=== PATIENT | female | born 1960 | race Caucasian/White ===

== ENCOUNTER 2016-10-10 04:49 | Emergency (ER) | payer OTHER ==
[~2016-10-10] VITALS: Ht 167.6 cm; Wt 108.0 kg
[2016-10-10 04:59] VITALS: BP 160/105; PULSE 86; RESP 16; TEMP 98.8; O2SAT 97
[2016-10-10] MEDS ORDERED: SODIUM CHLOR 0.9% 1000 ML INJ 1,000 ML IV ONE (05:17)
[2016-10-10] MEDS ORDERED: ONDANSETRON HCL 4 MG/2 ML VIAL IVP ONE (05:30)
[2016-10-10] MEDS ORDERED: SODIUM CHLORIDE 0.9% FLUSH 5 ML FLUSH IVF PRN (05:30)
[2016-10-10] MEDS ORDERED: MORPHINE SULFATE 4 MG/ML INJ IV PUSH ONE (05:30)
[2016-10-10] MEDS ORDERED: PANTOPRAZOLE SODIUM 40 MG VIAL IVP ONE (05:30)
[2016-10-10 05:51] LABS: BLOOD, URINE NEG (NEG); GLUCOSE,URINE NEG (NEG); KETONE, URINE NEG (NEG); NITRITE,URINE NEG (NEG); PH, URINE 6.5 (5.0-8.5)
[2016-10-10 05:55] LABS: URINE COLOR YELLOW (YELLW/STRAW)
[2016-10-10 05:57] LABS: COMMENT (UR) CULT NOT INDICATED; CULTURE IF INDICATED CULT NOT INDICATED; SQUAMOUS EPITHELIAL CELL URINE 0-5 /hpf (0-5)
[2016-10-10 06:29] VITALS: BP 146/95; PULSE 71; RESP 18; O2SAT 96
[2016-10-10] MEDS ORDERED: MULTTAB67 PO ×2 (06:37)
[2016-10-10] MEDS ORDERED: ZOLO100T PO (06:37)
[2016-10-10] MEDS ORDERED: GLAT1INJ SQ (06:37)
[2016-10-10] MEDS ORDERED: ANTIVIRAL PO (06:39)
[2016-10-10 06:41] VITALS: RESP 18
[2016-10-10 06:52] LABS: AUTOMATED NEUTROPHIL # 2.9 TH/MM3 (1.8-7.7); BASOPHIL # 0.1 TH/MM3 (0-0.2); BASOPHIL % 0.9 % (0.0-2.0); EOSINOPHIL # 0.3 TH/MM3 (0-0.4); HEMO FLAGS DIFF FINAL; LYMPH % 30.2 % (9.0-44.0); LYMPHOCYTE # 1.7 TH/MM3 (1.0-4.8); MEAN CORPUSCULAR HEMOGLOBIN 28.3 PG (27.0-34.0); MEAN CORPUSCULAR HGB CONC 33.7 % (32.0-36.0); MONO % 10.2 % (0.0-8.0); NEUT % 53.7 % (16.0-70.0); PLATELET COUNT 311 TH/MM3 (150-450); RED BLOOD COUNT 4.76 MIL/MM3 (4.00-5.30); RED CELL DISTRIBUTION WIDTH 13.6 % (11.6-17.2); WHITE BLOOD COUNT 5.6 TH/MM3 (4.0-11.0)
[2016-10-10 07:04] LABS: CHLORIDE 107 MEQ/L (98-107); SODIUM (NA) 142 MEQ/L (136-145)
[2016-10-10 07:08] LABS: ANION GAP 8 MEQ/L (5-15); BICARBONATE 27.3 MEQ/L (21.0-32.0); BLOOD UREA NITROGEN 10 MG/DL (7-18)
[2016-10-10 07:11] LABS: ALT (GPT) 60 U/L (10-53); AST (GOT) 24 U/L (15-37); GLOMERULAR FILTRATION RATE 94 ML/MIN (>89)
--- NOTE | 2016-10-10 07:12 | PD ---
HPI Chief Complaint: GI Complaint Time Seen by Provider: 05:17 Travel History International Travel<30 days: No Contact w/Intl Traveler<30days: No Traveled to known affect area: No History of Present Illness HPI 56-year-old female presents to the emergency department for complaint of nausea vomiting and dehydration. Patient states she was diagnosed with shingles affecting the right upper extremity and was prescribed acyclovir. Patient is been taking the medication as prescribed. Patient states she's been taking ibuprofen without symptom relief. Patient states that she was on 2 days worth of Lortab with good pain management but has run out of the Lortab and continues to have pain and now developing nausea vomiting and dehydration. Patient states she is unable to tolerate any oral hydration. Patient presents requesting IV fluid hydration. Patient denies any fever chills. No sore throat or earache. No visual disturbance. No chest pain or shortness of breath. No hematemesis coffee-ground emesis bilious emesis. No abdominal pain. No diarrhea. Patient denies dysuria states has noted decreased urine output. Patient denies other concerns or complaints. Patient rates her pain associated with shingles affecting the right upper extremity as 8/10 in intensity. Patient is not able to identify exacerbating or alleviating factors. PFSH Past Medical History Narrative Medical COPD multiple sclerosis tonsillectomy no tobacco use shingles nursing notes reviewed COPD: Yes Diminished Hearing: No Musculoskeletal: Yes (MS) Tetanus Vaccination: Unknown Influenza Vaccination: Yes Menopausal: Yes Tubal Ligation: Yes Past Surgical History Tonsillectomy: Yes Social History Alcohol Use: No Tobacco Use: No Substance Use: No Allergies-Medications (Allergen,Severity, Reaction): Coded Allergies: No Known Allergies (Unverified , 10/10/16) Reported Meds & Prescriptions Reported Meds & Active Scripts Active Reported [Antiviral] PO TID Multiple Vitamin 1 Tab 1 Tab PO TID Multiple Vitamin 1 Tab 1 Tab PO DAILY Zoloft (Sertraline HCl) 100 Mg Tab 100 Mg PO DAILY Copaxone Inj (Glatiramer Inj) 40 Mg/Ml Syr 40 Mg SQ 3XWEEK Use 3 times/week at least 48 hrs apart Review of Systems General / Constitutional: No: Fever, Chills HENT: No: Sore Throat, Congestion Cardiovascular: No: Chest Pain or Discomfort, Palpitations Respiratory: No: Shortness of Breath Gastrointestinal: Positive: Nausea, Vomiting, No: Diarrhea, Abdominal Pain, Hematemesis, Hematochezia Genitourinary: Positive: Decreased Urinary Output, No: Urgency, Frequency, Dysuria Musculoskeletal: No: Myalgias, Arthralgias Skin: Positive Rash (shingles) Neurologic: No: Weakness, Dizziness, Syncope Psychiatric: No: Anxiety Endocrine: No: Heat Intolerance Hematologic/Lymphatic: No: Easy Bruising Physical Exam Narrative GENERAL: Well-developed well-nourished female in no acute distress no respiratory distress GCS 15 SKIN: Warm and dry. Erythematous papular vesicular rash affecting the right upper extremity extending to the right shoulder and right lateral neck; no fascial involvement of rash; no pustules no petechia no purpura HEAD: Normocephalic. EYES: No scleral icterus. No injection or drainage. ENT: Mucous membranes dry airway is patent. NECK: Supple, trachea midline. No JVD or lymphadenopathy. No midline tenderness to direct palpation along the cervical spine CARDIOVASCULAR: Regular rate and rhythm without murmurs, gallops, or rubs. RESPIRATORY: Breath sounds equal bilaterally. No accessory muscle use. GASTROINTESTINAL: Abdomen soft, non-tender, nondistended. MUSCULOSKELETAL: No cyanosis, or edema. BACK: Nontender without obvious deformity. No CVA tenderness. Data Data Last Documented VS Vital Signs Date Time Temp Pulse Resp B/P Pulse Ox O2 Delivery O2 Flow Rate FiO2 10/10/16 06:41 18 10/10/16 06:29 71 146/95 96 Room Air 10/10/16 04:59 98.8 Orders Complete Blood Count With Diff (10/10/16 05:17) Comprehensive Metabolic Panel (10/10/16 05:17) Urinalysis - C+S If Indicated (10/10/16 05:17) Lipase (10/10/16 05:17) Iv Access Insert/Monitor (10/10/16 05:17) Ecg Monitoring (10/10/16 05:17) Oximetry (10/10/16 05:17) Ondansetron Inj (Zofran Inj) (10/10/16 05:30) Pantoprazole Inj (Protonix Inj) (10/10/16 05:30) Sodium Chlor 0.9% 1000 Ml Inj (Ns 1000 M (10/10/16 05:17) Sodium Chloride 0.9% Flush (Ns Flush) (10/10/16 05:30) Magnesium (Mg) (10/10/16 05:17) Morphine Inj (Morphine Inj) (10/10/16 05:30) Labs Laboratory Tests Test 10/10/16 10/10/16 05:38 06:44 Urine Color YELLOW Urine Turbidity CLEAR Urine pH 6.5 Urine Specific [place] 1.018 Urine Protein NEG mg/dL Urine Glucose (UA) NEG mg/dL Urine Ketones NEG mg/dL Urine Occult Blood NEG Urine Nitrite NEG Urine Bilirubin NEG Urine Leukocyte Esterase TRACE Urine WBC 3-5 /hpf Urine Squamous Epithelial 0-5 /hpf Cells Microscopic Urinalysis Comment CULT NOT INDICATED White Blood Count 5.6 TH/MM3 Red Blood Count 4.76 MIL/MM3 Hemoglobin 13.5 GM/DL Hematocrit 40.0 % Mean Corpuscular Volume 84.0 FL Mean Corpuscular Hemoglobin 28.3 PG Mean Corpuscular Hemoglobin 33.7 % Concent Red Cell Distribution Width 13.6 % Platelet Count 311 TH/MM3 Mean Platelet Volume 7.2 FL Neutrophils (%) (Auto) 53.7 % Lymphocytes (%) (Auto) 30.2 % Monocytes (%) (Auto) 10.2 % Eosinophils (%) (Auto) 5.0 % Basophils (%) (Auto) 0.9 % Neutrophils # (Auto) 2.9 TH/MM3 Lymphocytes # (Auto) 1.7 TH/MM3 Monocytes # (Auto) 0.6 TH/MM3 Eosinophils # (Auto) 0.3 TH/MM3 Basophils # (Auto) 0.1 TH/MM3 CBC Comment DIFF FINAL Differential Comment Sodium Level 142 MEQ/L Potassium Level 4.0 MEQ/L Chloride Level 107 MEQ/L [facility] Medical Decision Making Medical Screen Exam Complete: Yes Emergency Medical Condition: Yes Medical Record Reviewed: Yes Differential Diagnosis Dehydration, adverse medication reaction, electrolyte disturbance, UTI, renal insufficiency, rhabdomyolysis Narrative Course IV access obtained patient administered normal saline bolus 1 L along with Zofran 4 mg IV specimens collected and sent for resulting Patient with difficulty obtaining IV access I was asked to obtain peripheral access Patient's care signed over to oncoming physician, Dr Garcia, for follow-up of pending labs and patient disposition Diagnosis Primary Impression: Ladonna Shaver MD Oct 10, 2016 07:12
[2016-10-10 07:13] LABS: TOTAL BILIRUBIN ADULT 0.4 MG/DL (0.2-1.0)
[2016-10-10 07:14] LABS: ALKALINE PHOSPHATASE 82 U/L (45-117)
[2016-10-10] MEDS ORDERED: HYDR-3533 PO (07:26)
[2016-10-10] MEDS ORDERED: ZOFR4TAB3 SL (07:26)
[2016-10-10 07:55] VITALS: BP 137/79
== END 2016-10-10 07:59 | disposition home or self-care (01) ==
LOC: PHED 04:49
DX: R11.10 Vomiting, unspecified (principal); E86.0 Dehydration; B02.9 Zoster without complications; Z87.09 Personal history of other diseases of the respiratory system; Z87.39 Personal history of other diseases of the musculoskeletal system and connective tissue
CPT/HCPCS: 80053; 81001; 83690; 83735; 85025; 96361; 96374; 96375; 99284; C9113; J2270; J2405; J7030